=== PATIENT | female | born 1995 | race Caucasian/White ===

== ENCOUNTER 2022-08-21 13:03 | Emergency (ER) | payer SELFPAY ==
[~2022-08-21] VITALS: Ht 160 cm; Wt 130.9 kg
[2022-08-21] MEDS ORDERED: NORCO 325 MG-51 TAB PO (14:39)
[2022-08-21 14:50] VITALS: BP 118/82; PULSE 94; TEMP 98.2
== END 2022-08-21 14:55 | disposition home or self-care (01) ==
LOC: COL.ER 13:03
DX: S43.402A Unspecified sprain of left shoulder joint, initial encounter (principal); W01.0XXA Fall on same level from slipping, tripping and stumbling without subsequent striking against object, initial encounter; Y93.01 Activity, walking, marching and hiking; Y92.59 Other trade areas as the place of occurrence of the external cause; Y99.0 Civilian activity done for income or pay